=== PATIENT | female | born 1935 | race Two or more races ===

== ENCOUNTER 2021-11-01 12:01 | Outpatient (CLI) | payer OTHER | END 2021-11-01 12:05 | disposition home or self-care (01) | LOC: RAD 12:01 | PROVIDERS: ATTEND Orthopaedic Surgery | DX: M25.561 Pain in right knee (principal); M25.562 Pain in left knee ==

== ENCOUNTER 2021-12-26 08:18 | Outpatient (CLI) | payer OTHER | END 2021-12-26 08:20 | disposition home or self-care (01) | LOC: LAB 08:18 | PROVIDERS: ATTEND Orthopaedic Surgery | DX: E55.9 Vitamin D deficiency, unspecified (principal); M85.9 Disorder of bone density and structure, unspecified; E56.1 Deficiency of vitamin K; E21.3 Hyperparathyroidism, unspecified; E88.9 Metabolic disorder, unspecified; M81.8 Other osteoporosis without current pathological fracture ==

== ENCOUNTER 2021-12-26 09:56 | Outpatient (CLI) | payer OTHER | END 2021-12-26 09:57 | disposition home or self-care (01) | LOC: NUCLEAR 09:56 | PROVIDERS: ATTEND Orthopaedic Surgery | DX: M81.0 Age-related osteoporosis without current pathological fracture (principal) ==

== ENCOUNTER 2022-03-30 10:38 | Outpatient (CLI) | payer OTHER | END 2022-03-30 10:39 | disposition home or self-care (01) | LOC: RAD 10:38 | PROVIDERS: ATTEND Orthopaedic Surgery | DX: M79.651 Pain in right thigh (principal); M25.551 Pain in right hip ==

== ENCOUNTER → 2022-07-12 | Outpatient (CLI) | payer OTHER | END | disposition home or self-care (01) | LOC: MAMO-SONO 08:25 | DX: Z12.31 Encounter for screening mammogram for malignant neoplasm of breast (principal); N60.11 Diffuse cystic mastopathy of right breast; N60.12 Diffuse cystic mastopathy of left breast; E04.9 Nontoxic goiter, unspecified ==

== ENCOUNTER 2023-08-07 10:14 | Outpatient (CLI) | payer OTHER | END 2023-08-07 10:47 | disposition home or self-care (01) | LOC: RAD 10:14 | PROVIDERS: ATTEND Orthopaedic Surgery | DX: M25.551 Pain in right hip (principal); M25.561 Pain in right knee ==

== ENCOUNTER 2023-11-07 08:32 | Outpatient (CLI) | payer OTHER ==
[~2023-11-07 08:32] MED LIST: FENOFIBRATE145 MG; LEFLUNOMIDE20 MG; LORAZEPAM1 MG; LOSARTAN POTAS100 MG; LUMIGAN2.5 M1; MEMANTINE HCL10 MG; METOPROLOL SUCC25 MG; PANTOPRAZOLE SO40 MG; SERTRALINE HCL50 MG
== END 2023-11-07 08:36 | disposition home or self-care (01) ==
LOC: RAD 08:32
PROVIDERS: ATTEND Orthopaedic Surgery
DX: S72.041D Displaced fracture of base of neck of right femur, subsequent encounter for closed fracture with routine healing (principal); Z96.641 Presence of right artificial hip joint

== ENCOUNTER 2024-01-03 12:57 | Outpatient (CLI) | payer OTHER | END 2024-01-03 12:59 | disposition home or self-care (01) | LOC: NUCLEAR 12:57 | PROVIDERS: ATTEND Orthopaedic Surgery | DX: M81.0 Age-related osteoporosis without current pathological fracture (principal) ==

== ENCOUNTER 2024-10-23 04:45 | Emergency (ER) | payer OTHER ==
[~2024-10-23] VITALS: Ht 165.1 cm; Wt 47.6 kg
[2024-10-23] MEDS ORDERED: AMLODIPINE BESYL5 MG PO (05:11)
[2024-10-23] MEDS ORDERED: HYDRALAZINE HCL50 MG PO (05:11)
[2024-10-23] MEDS ORDERED: SERTRALINE20 MG/1 ML PO (05:11)
[2024-10-23] MEDS ORDERED: IPRATROPIUM/ALBUTEROL SULFATE 3 ML AMPUL.NEB IH SCH (05:17)
[2024-10-23] MEDS ORDERED: IPRATROPIUM/ALBUTEROL SULFATE 3 ML AMPUL.NEB IH ONE ×3 (06:53→16:18)
[2024-10-23 06:57] LABS: PH,URINE 5.5 (5.0-8.0); URINE APPEARANCE Clear; URINE BILIRRUBIN Negative (NEGATIVE); URINE BLOOD Negative; URINE COLOR Yellow; URINE GLUCOSE Negative (NEGATIVE); URINE KETONE Negative (NEGATIVE); URINE LEUKOCYTE Negative; URINE NITRATE Negative; URINE UROBILINOGEN 0.2 E.U./dl
[2024-10-23 06:58] LABS: COVID-19 AG NEGATIVE (NEGATIVE); INFLUENZA A AG NEGATIVE (NEGATIVE); INFLUENZA B AG NEGATIVE (NEGATIVE)
[2024-10-23 07:01] LABS: URINE BACTERIA 17.1 uL (0.0-1933); URINE EPITHELIAL CELLS 12.3 uL (0.0-38.8); URINE WBC 7.7 uL (0.0-23.2)
[2024-10-23 07:01] LABS: BASO % 0.6 % (0.1-1.2); EOS # 0.13 (0.04-0.54); EOS % 0.8 % (0.7-7.0); HEMATOCRIT 28.8 % (34.1-44.9); LYMPH # 2.55 (1.18-3.74); LYMPH % 16.4 % (19.3-53.1); MEAN CORPUSCULAR HEMOGLOBIN 28.7 pg (25.6-32.2); MONO # 0.82 (0.24-0.82); MONO % 5.3 % (4.7-12.5); NEUT # 11.06 (1.56-6.13); NEUT % 71.3 % (34.0-71.1); PLATELET COUNT 462 K/uL (163-369); RED BLOOD COUNT 3.03 M/uL (3.93-5.22); RED CELL DISTRIBUTION WIDTH 18.4 % (11.6-14.4)
[2024-10-23 07:02] LABS: ABG PH 7.446 (7.35-7.45); ABG PO2 91.6 mmHg (80-100); ABG pCO2 33.8 mmHg (35-45); BASE EXCESS -0.5 mmol/l; BICARBONATE 22.8 mmol/l (23-25); SaO2 97.4 %; Tco2 23.8 mmol/l
[2024-10-23 07:08] LABS: allen test SATISFACTORY; mode NASAL CANNULA; o2 28 %; puncture site RADIAL RIGHT
[2024-10-23 07:33] LABS: ALBUMIN 2.6 gm/dL (3.4-5.0); BILIRUBIN TOTAL 0.33 mg/dL (0.3-1.2); CALCIUM 8.3 mg/dL (8.5-10.1); CREATININE SERUM 0.86 mg/dL (0.55-1.02); GFR 62.56; GLOBULINA 3.3 G/DL (2.4-3.5); POTASSIUM 4.46 mEq/L (3.5-5.1); TOTAL PROTEIN 5.9 gm/dL (6.4-8.2)
[2024-10-23 07:43] LABS: HEMOGLOBIN 8.7 g/dL (11.2-15.7)
[2024-10-23 08:24] LABS: URINE CAST 0.44 uL (0.0-1.40); URINE PROTEIN 100 (NEGATIVE); URINE RBC 1.9 uL (0.0-20.8)
[2024-10-23 08:27] LABS: URINE YEAST FEW /hpf
[2024-10-23] MEDS ORDERED: AZITHROMYCIN 500 MG VIAL IV ONE ×2 (14:15→14:16)
[2024-10-23] MEDS ORDERED: CEFTRIAXONE SODIUM 1,000 MG VIAL IV ONE (15:00)
[2024-10-23] MEDS ORDERED: CEFTRIAXONE SODIUM 1,000 MG VIAL ONE ×2 (17:27→17:32)
[2024-10-23] MEDS ORDERED: cloNIDine HCL 0.2 MG TABLET PO STA (23:39)
== END 2024-10-23 18:29 | disposition home or self-care (01) ==
LOC: ER 04:45
DX: J22 Unspecified acute lower respiratory infection (principal); G30.8 Other Alzheimer's disease; F02.80 Dementia in other diseases classified elsewhere, unspecified severity, without behavioral disturbance, psychotic disturbance, mood disturbance, and anxiety; D64.89 Other specified anemias; Z20.822 Contact with and (suspected) exposure to COVID-19
CPT/HCPCS: 36415; 71045; 82803; 93005; 94640; 99284; J0456

== ENCOUNTER → 2025-03-11 07:45 | Outpatient (CLI) | payer OTHER ==
[~2025-03-11 07:45] MED LIST changes: +AMLODIPINE BESYL5 MG PO; +HYDRALAZINE HCL50 MG PO; +SERTRALINE20 MG/1 ML PO
== END | disposition home or self-care (01) ==
LOC: LAB 07:45
PROVIDERS: ATTEND Orthopaedic Surgery
DX: E56.1 Deficiency of vitamin K (principal)